=== PATIENT | male | born 1945 | race Caucasian/White ===

== ENCOUNTER → 2016-08-08 | Outpatient (CLI) | payer OTHER | END | disposition home or self-care (01) | LOC: PCVCIMAG 14:11 | PROVIDERS: ATTEND Internal Medicine Cardiovascular Disease | DX: I08.1 Rheumatic disorders of both mitral and tricuspid valves (principal); I48.91 Unspecified atrial fibrillation; E11.9 Type 2 diabetes mellitus without complications; I10 Essential (primary) hypertension; E78.5 Hyperlipidemia, unspecified; R09.89 Other specified symptoms and signs involving the circulatory and respiratory systems; Z95.2 Presence of prosthetic heart valve | CPT/HCPCS: 80061; 93005; 93306; G0463 ==

== ENCOUNTER → 2017-08-31 | Outpatient (CLI) | payer OTHER | END | disposition home or self-care (01) | LOC: PCVCCLINIC 11:30 | DX: I48.91 Unspecified atrial fibrillation (principal); I10 Essential (primary) hypertension; E11.9 Type 2 diabetes mellitus without complications; I51.7 Cardiomegaly; I77.9 Disorder of arteries and arterioles, unspecified; I34.0 Nonrheumatic mitral (valve) insufficiency; E78.5 Hyperlipidemia, unspecified; I25.10 Atherosclerotic heart disease of native coronary artery without angina pectoris; R94.31 Abnormal electrocardiogram [ECG] [EKG]; Z95.3 Presence of xenogenic heart valve; Z79.84 Long term (current) use of oral hypoglycemic drugs; Z87.891 Personal history of nicotine dependence | CPT/HCPCS: 93005; G0463 ==

== ENCOUNTER → 2018-08-09 | Outpatient (CLI) | payer OTHER | END | disposition home or self-care (01) | LOC: PCVCCLINIC 14:54 | PROVIDERS: ATTEND Internal Medicine Cardiovascular Disease | DX: I25.10 Atherosclerotic heart disease of native coronary artery without angina pectoris (principal); E11.9 Type 2 diabetes mellitus without complications; I48.2 Chronic atrial fibrillation; I51.7 Cardiomegaly; I25.5 Ischemic cardiomyopathy; I65.23 Occlusion and stenosis of bilateral carotid arteries; I10 Essential (primary) hypertension; I35.0 Nonrheumatic aortic (valve) stenosis; E78.5 Hyperlipidemia, unspecified; Z95.3 Presence of xenogenic heart valve; Z87.891 Personal history of nicotine dependence | CPT/HCPCS: 36415; 80061; 93005; G0463 ==

== ENCOUNTER → 2019-03-21 | Outpatient (CLI) | payer OTHER ==
--- NOTE | 2019-03-21 16:44 | PCVCIMAG ---
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 2D Dimensions IVSd: 10.50 (7-11mm)LVOT Diam: 21.51 (18-24mm) LVDd: 57.15 mm PWd: 12.01 (7-11mm)Ascending Ao: 33.71 (22-36mm) LVDs: 51.09 (25-40mm) Left Atrium: 56.93 (27-40mm) Aortic Root: 31.13 mm LV Single Plane 4CH: 38.72 % Volumes Left Atrial Volume (Systole) Single Plane 4CH: 91.06 mLSingle Plane 2CH: 112.81 mL LA ESV Index: 47.00 mL/m2 Aortic Valve AoV Peak Francisco.: 2.23 m/s AO Peak Gr.: 19.93 mmHgLVOT Max P.06 mmHg AO Mean Gr.: 9.98 mmHgLVOT Mean P.59 mmHg AO V2 Mean: 1.53 m/sLVOT Max V: 0.87 m/s AO V2 VTI: 44.53 cmLVOT Mean V: 0.59 m/s JASVIR (VTI): 1.46 [id number] V1 VTI: 17.94 cm JASVIR Vmax: 1.42 cm2 SV (LVOT): 65.14 mL Mitral Valve E/A Ratio: 1.2 MV Decel. Time: 972.97 ms MV E Max Francisco.: 1.06 m/s MV A Francisco.: 0.86 m/s Pulmonary Valve PV Peak Gr.: 1.69 mmHg Tricuspid Valve TR Peak Francisco.: 2.91 m/s TR Peak Gr.: 34.21 mmHg Left Ventricle The left ventricle is normal size. There is global hypokinesis of the left ventricle. There is normal left ventricular wall thickness. Left ventricular systolic function is mildly decreased. LVEF is 45-50%. This study is not technically sufficient to allow evaluation of the LV diastolic function due to atrial fibrillation. Right Ventricle The right ventricle is normal size. The right ventricular systolic function is normal. Atria Left atrium is mildly dilated. Right atrium is dilated. Aortic Valve #25 Bioprothestic aortic valve. peak gradient is 20mmHg. Mean gradient is 10mmHg. No aortic regurgitation is present. There is no aortic valvular stenosis. Mitral Valve The mitral valve is normal in structure. Mild mitral regurgitation. No evidence of mitral valve stenosis. Tricuspid Valve The tricuspid valve is normal in structure. Trace to mild tricuspid regurgitation. Pulmonary artery pressure is 41mmHg. Pulmonic Valve The pulmonary valve is normal in structure. Trace to mild pulmonic regurgitation. Great Vessels The aortic root is normal in size. IVC is normal in size and collapses >50% with inspiration. Pericardium There is no pericardial effusion. <Conclusion> The left ventricle is normal size. Left ventricular systolic function is mildly decreased. There is global hypokinesis of the left ventricle. LVEF is 45-50%. The right ventricle is normal size. Left atrium is mildly dilated. Right atrium is dilated. #25 Bioprothestic aortic valve. peak gradient is 20mmHg. Mean gradient is 10mmHg. There is no aortic valvular stenosis. Mild mitral regurgitation. Trace to mild tricuspid regurgitation. Pulmonary artery pressure is 41mmHg. The aortic root is normal in size. There is no pericardial effusion.
== END | disposition home or self-care (01) ==
LOC: PCVCIMAG 12:53
PROVIDERS: ATTEND Internal Medicine Cardiovascular Disease
DX: I08.1 Rheumatic disorders of both mitral and tricuspid valves (principal); I25.10 Atherosclerotic heart disease of native coronary artery without angina pectoris; E78.00 Pure hypercholesterolemia, unspecified; E11.9 Type 2 diabetes mellitus without complications; I65.23 Occlusion and stenosis of bilateral carotid arteries; I10 Essential (primary) hypertension; I48.21 Permanent atrial fibrillation; D68.59 Other primary thrombophilia; I42.9 Cardiomyopathy, unspecified; Z87.891 Personal history of nicotine dependence; Z79.899 Other long term (current) drug therapy; Z88.0 Allergy status to penicillin; Z88.8 Allergy status to other drugs, medicaments and biological substances
CPT/HCPCS: 93306